=== PATIENT | male | born 1955 | race Caucasian/White ===

== ENCOUNTER → 2017-04-07 | Outpatient (CLI) | payer OTHER ==
--- NOTE | 2017-04-08 07:45 | MR ---
EXAMINATION TYPE: MR shoulder RT wo con DATE OF EXAM: 04/07/2017 5:02 PM COMPARISON: NONE HISTORY: Rt shoulder pain x 3 mos TECHNIQUE: Multiplanar, multisequence imaging of the right shoulder is performed without contrast. FINDINGS: There is no evidence of an os acromiale. There are mild hypertrophic and inflammatory changes involving the right AC joint. There is abnormal fluid signal within the infraspinatus tendon. This measures 1.5 x 2 cm. There is te ndinosis of the remainder of the infraspinatus tendon. The supraspinatus tendon is a more normal appe arance. There is gross swelling of the biceps tendon in its distal visualized portion. The attending cannot b e followed beyond the biceps anchor. The intra-articular portion is not visualized. I suspect this is ruptured and retracted to the biceps tendon sheath. The pseudocystic change in the humeral head, an indirect sign of impingement. The superior glenoid labrum appears macerated. There is pseudocystic change in the superior aspect of the glenoid. There is near complete loss of the glenohumeral joint space. IMPRESSION: INTRASUBSTANCE TEAR OF THE INFRASPINATUS TENDON. 2. RUPTURE OF THE BICEPS TENDON WITH RETRACTION INTO THE BICEPS TENDON SHEATH. 3. MACERATION OF THE SUPERIOR GLENOID LABRUM. 4. HYPERTROPHIC INFLAMMATORY CHANGE, RIGHT AC JOINT. 5. PSEUDOCYSTIC CHANGE WITHIN THE HUMERAL HEAD, AN INDIRECT SIGN OF IMPINGEMENT.
== END | disposition home or self-care (01) ==
LOC: RADMRIMAIN 16:20
PROVIDERS: ATTEND Orthopaedic Surgery
DX: S46.811A Strain of other muscles, fascia and tendons at shoulder and upper arm level, right arm, initial encounter (principal); S43.431A Superior glenoid labrum lesion of right shoulder, initial encounter; M66.811 Spontaneous rupture of other tendons, right shoulder

== ENCOUNTER → 2017-07-07 | Outpatient (CLI) | payer OTHER ==
[2017-07-07 14:18] LABS: EKG EKG PERFORMED
[2017-07-07 14:47] LABS: Anion Gap 13 mmol/L; Carbon Dioxide 21 mmol/L (22-30); Chloride 103 mmol/L (98-107); Potassium 4.9 mmol/L (3.5-5.1); Sodium 137 mmol/L (137-145)
[2017-07-07 15:32] LABS: Basophils # (A) 0.1 k/uL (0-0.2); Basophils % (A) 1 %; CH 32.3; CHCM 35.1; Eosinophils # (A) 0.2 k/uL (0-0.7); Eosinophils % (A) 3 %; HCT 39.4 % (39.0-53.0); Luc # (Auto) 0.08; Luc % (Auto) 1; Lymphocytes # (A) 1.5 k/uL (1.0-4.8); Lymphocytes % (A) 25 %; MCH 30.5 pg (25.0-35.0); MCHC 33.1 g/dL (31.0-37.0); MCV 92.3 fL (80.0-100.0); Mean Platelet Volume 6.1; Monocytes # (A) 0.3 k/uL (0-1.0); Monocytes % (A) 5 %; Neutrophils # (A) 3.9 k/uL (1.3-7.7); Neutrophils % (A) 64 %; RBC 4.27 m/uL (4.30-5.90); RDW 12.4 % (11.5-15.5); WBC 6.1 k/uL (3.8-10.6); WBC (Perox) 6.24
== END | disposition home or self-care (01) ==
LOC: LABWHC1 14:01
PROVIDERS: ATTEND Orthopaedic Surgery
DX: Z01.812 Encounter for preprocedural laboratory examination (principal)
CPT/HCPCS: 36415; 80051; 85025; 93005

== ENCOUNTER 2017-07-30 05:54 | Day surgery (SDC) | payer OTHER ==
[2017-07-27 16:29] VITALS: BMI 25.7
--- NOTE | 2017-07-29 15:03 | HP ---
HISTORY AND PHYSICAL REASON FOR ADMISSION: Surgery 07/30/2017 HISTORY OF PRESENT ILLNESS: Carmela Rios is a 52-year-old patient seen with progressive right shoulder pain. After we had discussed treatment options, he elected to proceed with right shoulder arthroscopy. Consent was obtained. PAST MEDICAL HISTORY: Hypertension. PAST SURGICAL HISTORY: Left shoulder arthroscopy. DAILY MEDICATIONS: Ibuprofen. ALLERGIES: PENICILLIN. SOCIAL HISTORY: Patient denies current tobacco use. PHYSICAL EXAMINATION: Evaluation right shoulder flexion 80 degrees, abduction is 40 degrees, external rotation is 40 degrees with pain and weakness. Tenderness anterior lateral acromion rotator cuff insertion site. Impingement positive 90 degrees. Drop-arm sign positive. Distal neurovascular exam is intact. RADIOGRAPHS: Right shoulder radiographs revealed a type 2 anterior acromion acromioclavicular joint osteoarthritis and cystic changes of the tuberosity. An MRI of right shoulder revealed rotator cuff tear, biceps tear and acromioclavicular joint osteoarthritis. IMPRESSION: Right shoulder impingement with rotator cuff tear and acromioclavicular joint osteoarthritis. PLAN: Right shoulder arthroscopy, subacromial decompression, probable arthroscopic rotator cuff repair, probable Filemon procedure and debridement. Surgery 07/30/2017. MMODL / IJN: [id number] /
[~2017-07-30 05:54] MED LIST: DEXAMETHASONE SOD PHOSPHATE 10 MG/ML 1 ML VIAL IV ONE; HYDROmorphone 0.5 MG/0.5 ML SYRINGE IVP PRN; MIDAZOLAM 2 MG/2 ML VIAL IV PRN; ONDANSETRON 4 MG/2 ML VIAL IVP ONE; Pre Op ABX Message 1 EACH MISC MISCELLANE ONE
[2017-07-30] MEDS: LACTATED RINGERS 1,000 ML IV SCH ×2 (06:38→09:11)
[2017-07-30] MEDS ORDERED: LIDOCAINE 1% 20 ML VIAL (10MG/ML) FOR IV START INTRADERMA ONE (06:45)
[2017-07-30] MEDS ORDERED: fentaNYL (PF) 50 MCG/ML 2 ML AMP IV ONE (07:08)
[2017-07-30] MEDS ORDERED: MIDAZOLAM 2 MG/2 ML VIAL ONE (07:29)
[2017-07-30] MEDS ORDERED: LIDOCAINE 1% INJ 10MG/ML (20 ML MDV) ONE (07:29)
[2017-07-30] MEDS ORDERED: SUCCINYLCHOLINE CHLORIDE 100 MG/5 ML SYR IV ONE (07:29)
[2017-07-30] MEDS ORDERED: ROPIVACAINE 5 MG/ML 30 ML VIAL ONE (07:29)
[2017-07-30] MEDS ORDERED: PROPOFOL 10 MG/ML 20 ML VIAL IV ONE (07:29)
[2017-07-30] MEDS ORDERED: ePHEDrine SULFATE/0.9% NACL/PF 50 MG/5 ML SYRINGE IV ONE (07:29)
[2017-07-30] MEDS ORDERED: fentaNYL (PF) 50 MCG/ML 2 ML AMP ONE (07:29)
[2017-07-30] MEDS ORDERED: LIDOCAINE 2%-EPI 1:100,000 20 ML VIAL ONE (07:29)
[2017-07-30] MEDS ORDERED: SODIUM CHLORIDE 0.9% 100 ML with CLINDAMYCIN 600 MG IV ONE ×2 (07:45)
--- NOTE | 2017-07-30 08:53 | P.ONQ ---
Anesthesiology Proc Note - PNB - Peripheral Nerve Block Performed Right Interscalene Single Time Out Performed: Yes Procedure Start Time: 07:10 Indication: Acute Post-Operative Pain, Analgesia Specifically requested for management of pain by DrMoreno: Tobi Carbajal Sedation Type: Sedate with meaningful contact maintained Preparation: Sterile Prep Position: Supine Catheter: None Needle Types: Other (see comment) (Pajunk) Needle Size: 50mm (2") Needle Gauge: 21 Technique: Ultrasound Injectate: Other (see comment) (12.5cc 0.5% ropiv + 12.5cc 2% lido) Adjunct: Epinephrine (see comment for dilution ratio) (1:200,000) Blood Aspirated: No Pain Paresthesia on Injection Noted: No Resistance on Injection: Normal Events: Uneventful and Well Tolerated
--- NOTE | 2017-07-30 09:35 | P.OP ---
Date of Procedure: 07/30/17 Preoperative Diagnosis: Right shoulder impingement Postoperative Diagnosis: 1. Right shoulder rotator cuff tear 2. Right shoulder impingement 3. Right shoulder acromioclavicular joint osteoarthritis 4. Right shoulder superficial labral tear 5. 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 Right shoulder arthroscopic rotator cuff repair 2. Right shoulder arthroscopic subacromial decompression 3. Right shoulder arthroscopic Filemon procedure 4. Right shoulder arthroscopic debridement labral tear 5. Right shoulder arthroscopic chondroplasty glenoid Implants: 4-peek anchors Anesthesia: GETA, regional (Interscalene block) Surgeon: Tobi Carbajal Manager Sales #1: Darin Cortes Estimated Blood Loss (ml): 10 Pathology: none sent Condition: stable Disposition: PACU Indications for Procedure: 62-year-old patient seen with progressive right shoulder pain. After treatment options were discussed, he elected to proceed with arthroscopy. Operative Findings: See description of procedure Description of Procedure: Patient underwent a shoulder block by department of anesthesia. The patient was then taken to the operative suite. The patient underwent a general anesthetic by the department of anesthesia. The patient was placed into a lateral position and secured. There was appropriate padding of the bony prominence. Right shoulder was then prepped and draped in normal sterile orthopedic fashion. We placed the extremity in 10 pounds of longitudinal traction. A posterior incision was now made for a posterior working portal site. The trocar and cannula were inserted into the glenohumeral joint. Arthroscopy was initiated. Spinal needle was now inserted anteriorly, to ascertain the anterior working portal site. An incision was now made in that area, a trocar was inserted followed by a probe. Superficial tearing of the superior and anterior labrum was present. The long head biceps tendon was absent. There were grade 2 and 3 chondromalacia changes of the anterior portion of the glenoid with some osteochondral tears present. There were grade 1 chondral changes of the humeral head but no osteochondral tears were present. The posterior and inferior labrum were intact. There were no loose bodies. I could visualize a complete rotator cuff tear from the glenohumeral side. I debrided the labral tears getting down to stable tissue. I performed a chondroplasty of the glenoid down to stable tissue. The residual labrum was found to be stable as was the residual osteochondral surface of the glenoid. Instruments were now removed from glenohumeral joint. Utilizing the posterior working portal site, the trocar and cannula were inserted into the subacromial space. Arthroscopy initiated. I made an incision 2 fingerbreadths lateral to the acromion. I introduced my trocar followed by my ArthroCare ablator. I now began ablating thick subacromial bursal tissue, which exposed the undersurface of the anterior acromion. This was diminished subacromial space. There was a very prominent anterior acromion. A motorized bur was introduced and a subacromial decompression was performed. I also excised some osteophytes off the inferior aspect of the distal clavicle. The AC joint was visualized and noted to be fairly arthritic. Our motorized bur was introduced in the anterior portal site and a Filemon procedure was performed without difficulty, decompressing the AC joint nicely. I turned my attention to the rotator cuff. There was a 2 cm distal supraspinatus rotator cuff tendon tear. I debrided the margins gained down to stable tissue. Once I completed debriding the margins getting down to stable tissue the tear was approximately 2.5 cm. I abraded the footprint with a motorized bur. I created an sandblast carver portal site off the lateral acromion. I introduced 2 medial row anchors with 2 sutures each. I passed all 8 limbs of suture through good bites of rotator cuff tendon. I crisscrossed the sutures and then introduced 2 lateral anchors compressing the tendon along the footprint very nicely. The residual suture limbs were clipped. The repair was probed and found to be stable. Instruments now removed from the portal sites. All portal sites were approximated with nylon suture. Sterile dressings were applied followed by a shoulder immobilizer. Jitendra MAGANA assisted with the procedure. The patient was awakened, transferred to a bed, and taken to recovery in stable condition.
[2017-07-30 09:39] VITALS: TEMP 96.9
[2017-07-30 10:09] VITALS: PULSE 88
[2017-07-30 10:34] VITALS: RESP 16
[2017-07-30 10:39] VITALS: BP 153/85
== END 2017-07-30 11:35 | disposition home or self-care (01) ==
LOC: OR 05:54
PROVIDERS: ATTEND Orthopaedic Surgery
DX: M75.101 Unspecified rotator cuff tear or rupture of right shoulder, not specified as traumatic (principal); M25.811 Other specified joint disorders, right shoulder; M19.011 Primary osteoarthritis, right shoulder; S43.401A Unspecified sprain of right shoulder joint, initial encounter; X58.XXXA Exposure to other specified factors, initial encounter; M25.711 Osteophyte, right shoulder; M94.211 Chondromalacia, right shoulder; Z87.891 Personal history of nicotine dependence; I10 Essential (primary) hypertension; Z79.1 Long term (current) use of non-steroidal anti-inflammatories (NSAID); Z79.899 Other long term (current) drug therapy; Z88.0 Allergy status to penicillin
CPT/HCPCS: 64415; 29826; 29827; 29824; C1713 ×2; J2250; J1100; J2405; J2001; J3010; J2795; J0330; J2704

== ENCOUNTER 2020-05-31 09:31 | Emergency (ER) | payer MEDICARE, OTHER ==
[2020-05-31 09:37] VITALS: PULSE 77; RESP 18; TEMP 97.9
--- NOTE | 2020-05-31 09:57 | XR ---
EXAMINATION TYPE: XR knee complete LT DATE OF EXAM: 05/31/2020 CLINICAL HISTORY: pain TECHNIQUE: Three views of the left knee are obtained. COMPARISON: None. FINDINGS: There is no acute fracture/dislocation. The tri-compartment joint spaces appear within no rmal limits. The overlying soft tissue appears unremarkable. IMPRESSION: There is no acute fracture or dislocation ICD 10 NO FRACTURE, INITIAL EVALUATION
[2020-05-31] MEDS ORDERED: ACET/COD 300 MG/30 MG STARTER PACK 6 TAB BTL PO STA (10:10)
--- NOTE | 2020-05-31 10:26 | ED ---
Lower Extremity Injury HPI - General Chief Complaint: Extremity Injury, Lower Stated Complaint: left knee injury Time Seen by Provider: 05/31/20 09:37 Source: patient Mode of arrival: ambulatory Limitations: no limitations - History of Present Illness Initial Comments: 64yo male presenting to the Er today for cc of left posterior knee pain. Patient states that he has had left posterior knee pain that began roughly 5 days ago over the weekend after doing mulch. He states he was placing mulch and was off and on his knees multiple times. Patient denies falls. Denies leg swelling, knee swelling, redness, fevers, chills. Denies chest pain or SOB. States he is able to move the knees but weight bearing has causes more pain throughout the week. patient has been working continuing to do yard work. Patient has no additional complaints or concerns. - Related Data Home Medications Medication Instructions Recorded Confirmed Lisinopril-Hctz 20-12.5 mg 1 tab PO BID 05/31/20 05/31/20 [Zestoretic 20-12.5] Simvastatin [Zocor] 40 mg PO HS 05/31/20 05/31/20 Allergies Allergy/AdvReac Type Severity Reaction Status Date / Time Penicillins Allergy Swelling Verified 05/31/20 10:36 Review of Systems ROS Statement: Those systems with pertinent positive or pertinent negative responses have been documented in the HPI. ROS Other: All systems not noted in ROS Statement are negative. Past Medical History Past Medical History: Hyperlipidemia, Hypertension Additional Past Medical History / Comment(s): recent elevated BP at PCP office History of Any Multi-Drug Resistant Organisms: None Reported Past Surgical History: Orthopedic Surgery, Tonsillectomy Additional Past Surgical History / Comment(s): B shoulder Past Anesthesia/Blood Transfusion Reactions: No Reported Reaction Past Psychological History: No Psychological Hx Reported Smoking Status: Former smoker Past Alcohol Use History: Daily Past Drug Use History: None Reported General Exam - General Exam Comments Initial Comments: General: The patient is awake and alert, in no distress Eye: +3 mm pupils are equal, round and reactive to light, extra-ocular movements are intact. No nystagmus. There is normal conjunctiva bilaterally. No signs of icterus. Ears, nose, mouth and throat: There are moist mucous membranes and no oral lesions. Neck: The neck is supple, there is no tenderness or JVD. Cardiovascular: There is a regular rate and rhythm. No murmur, rub or gallop is appreciated. Respiratory: Lungs are clear to auscultation, respirations are non-labored, breath sounds are equal. No wheezes, stridor, rales, or rhonchi. Gastrointestinal: Soft, non-distended, non-tender abdomen without masses or organomegaly noted. There is no rebound or guarding present. No CVA tenderness. Musculoskeletal: Normal inspection of the knees b/l, tenderness to palpation of the left posterior knee. Full ROM without difficulty of the knees b/l. Stregnth preserved 5/5. Sensation intact proximal and distal to injury site. DP pulses equal bilaterally 2+. Pain with weight bearing. Neurological: A&O x 3. CN II-XII intact grossly, There are no obvious motor or sensory deficits. Coordination appears grossly intact. Speech is normal. Skin: Skin is warm and dry and no rashes or lesions are noted. Psychiatric: Cooperative, appropriate mood & affect, normal judgment. Limitations: no limitations Course Vital Signs 05/31/20 05/31/20 09:34 11:17 Temperature 97.9 F Pulse Rate 77 Respiratory 18 Rate Blood Pressure 176/98 182/108 O2 Sat by Pulse 97 98 Oximetry Medical Decision Making - Medical Decision Making XR (-). US (-). No DVT. Patient neurovascularly intact. Patient does not have r edness, swelling or difficulty ranging at the knee at this time I have low suspicion for septic joint. Recommend close f/u. Patient has appointment thursday with orthopedic surgery, [facility]. He is to rest the knee, ice, elevate and he can use the knee immobilizer when ambulating. Discussedd case with Dr. Donis who is agreeable to care plan. Disposition Clinical Impression: Left knee pain Disposition: HOME SELF-CARE Condition: Good Instructions (If sedation given, give patient instructions): Knee Sprain (ED), Knee Pain (ED) Additional Instructions: Please use medication as discussed. Please follow-up with family doctor in the next 2 days.. Please return to emergency room if the symptoms increase or worsen or for any other concerns. Is patient prescribed a controlled substance at d/c from ED?: No Referrals: Izabella Godwin DO [Primary Care Provider] - 1-2 days Time of Disposition: 10:44
[2020-05-31] MEDS ORDERED: ACETAMINOPHEN TAB 325 MG TAB PO STA (10:35)
--- NOTE | 2020-05-31 10:42 | US ---
EXAMINATION TYPE: US venous doppler duplex LE LT DATE OF EXAM: 05/31/2020 10:26 AM COMPARISON: NONE CLINICAL HISTORY: posterior left knee pain. no swelling, no h/o dvt, pain behind knee with no injury SIDE PERFORMED: left TECHNIQUE: The lower extremity deep venous system is examined utilizing real time linear array sonog candida with graded compression, doppler sonography and color-flow sonography. VESSELS IMAGED: External Iliac Vein (EIV) Common Femoral Vein Deep Femoral Vein Greater Saphenous Vein * Femoral Vein Popliteal Vein Small Saphenous Vein * Proximal Calf Veins (* superficial vessels) Left Leg: Negative for DVT IMPRESSION: No evidence for DVT
[2020-05-31 11:19] VITALS: BP 182/108
== END 2020-05-31 11:19 | disposition home or self-care (01) ==
LOC: EC 09:31
DX: M25.562 Pain in left knee (principal); E78.5 Hyperlipidemia, unspecified; I10 Essential (primary) hypertension; Z79.899 Other long term (current) drug therapy; Z87.891 Personal history of nicotine dependence; Z88.0 Allergy status to penicillin
CPT/HCPCS: 99284

== ENCOUNTER → 2020-07-05 | Outpatient (CLI) | payer MEDICARE, OTHER ==
--- NOTE | 2020-07-05 15:36 | MR ---
EXAMINATION TYPE: MR knee LT wo con DATE OF EXAM: 07/05/2020 COMPARISON: Left knee x-rays June 06, 2020 HISTORY: Left knee pain x 1 month TECHNIQUE: Multiplanar, multisequence imaging of the left knee is performed without IV contrast. FINDINGS: MEDIAL MENISCUS: Posterior horn shows globular increased signal does not definitively extend to artic ular surface. Anterior horn is intact. LATERAL MENISCUS: Anterior and posterior horns are intact without tear. CRUCIATE LIGAMENTS: The anterior and posterior cruciate ligaments are intact. There is suggestion of some partial tearing in the anterior cruciate ligament sagittal image 16. COLLATERAL LIGAMENTS: The medial collateral ligament and lateral collateral ligament complex are inta ct. Mild fluid signal surrounds medial collateral ligament. EXTENSOR MECHANISM: Visualized quadriceps and patellar tendons are intact. EFFUSION: Small suprapatellar joint effusion. POPLITEAL CYST: No popliteal/laguerre cyst. TRICOMPARTMENT SPACES: Mild tricompartment joint space loss and spurring. CARTILAGE: Thinning of articular cartilage medial tibiofemoral compartment BONE MARROW SIGNAL: Focus of increased T2 signal medial aspect medial tibial plateau with subtle area of low T1 signal extending to articular surface sagittal image 26 measuring 4 mm. There is subchondr al cystic change in the posterior lateral tibial metaphysis. OTHER: No additional significant abnormality is appreciated. IMPRESSION: 1. Intrasubstance tear posterior horn medial meniscus. No full-thickness meniscal tear. 2. Mild MCL sprain injury. 3. Oblique partial tearing of the ACL without full-thickness tear 4. Mild to moderate tricompartment degenerative changes greatest medial tibial femoral compartment as detailed above. Tiny subchondral injury and edema medial aspect medial tibial plateau. 5. Small suprapatellar joint effusion.
== END | disposition home or self-care (01) ==
LOC: RADMRIMAIN 14:44
PROVIDERS: ATTEND Orthopaedic Surgery
DX: M17.12 Unilateral primary osteoarthritis, left knee (principal); S83.242A Other tear of medial meniscus, current injury, left knee, initial encounter; S83.512A Sprain of anterior cruciate ligament of left knee, initial encounter; S83.412A Sprain of medial collateral ligament of left knee, initial encounter; S89.82XA Other specified injuries of left lower leg, initial encounter; R60.0 Localized edema

== ENCOUNTER → 2020-07-31 | Outpatient (CLI) | payer MEDICARE, OTHER ==
[2020-07-31 08:49] LABS: Potassium 5.4 mmol/L (3.5-5.1)
[2020-07-31 09:37] LABS: Basophils # (A) 0.1 k/uL (0-0.2); Basophils % (A) 1 %; Eosinophils # (A) 0.1 k/uL (0-0.7); Eosinophils % (A) 2 %; HCT 38.2 % (39.0-53.0); HGB 12.6 gm/dL (13.0-17.5); Lymphocytes # (A) 1.4 k/uL (1.0-4.8); Lymphocytes % (A) 20 %; MCH 30.6 pg (25.0-35.0); MCHC 32.9 g/dL (31.0-37.0); Mean Platelet Volume 6.9; Monocytes # (A) 0.4 k/uL (0-1.0); Monocytes % (A) 6 %; Neutrophils # (A) 5.1 k/uL (1.3-7.7); Neutrophils % (A) 70 %; Platelet Count 232 k/uL (150-450); RBC 4.11 m/uL (4.30-5.90); RDW 13.5 % (11.5-15.5); WBC 7.3 k/uL (3.8-10.6)
== END | disposition home or self-care (01) ==
LOC: LABPAT 07:40
PROVIDERS: ATTEND Orthopaedic Surgery
DX: M23.92 Unspecified internal derangement of left knee (principal)
CPT/HCPCS: 36415; 80051; 85025; 93005

== ENCOUNTER 2020-08-08 10:01 | Day surgery (SDC) | payer MEDICARE, OTHER ==
[2020-08-06 09:38] VITALS: BMI 25.1
--- NOTE | 2020-08-07 17:17 | HP ---
HISTORY AND PHYSICAL DATE OF SURGERY: 08/08/2020 Carmela Rios is a 65-year-old gentleman seen with progressive left knee pain. We discussed options, he elected to proceed with left knee arthroscopy. Consent was obtained. PAST MEDICAL HISTORY: Hypertension. PAST SURGICAL HISTORY: Noncontributory. . DAILY MEDICATIONS: Losartan, simvastatin, aspirin. ALLERGIES: PENICILLIN. SOCIAL HISTORY: Denies current tobacco use. PHYSICAL EVALUATION OF THE LEFT KNEE: His range of motion is 0-130, he has a mild effusion. Tenderness medial joint line. Positive medial Justin's. Ligaments stable. Hip rotation without pain. Distal neurovascular exam intact. LEFT KNEE RADIOGRAPHS: Revealed mild osteoarthritis, left knee MRI revealed an intrasubstance medial meniscal tear, partial ACL tear, joint effusion and osteoarthritis. IMPRESSION: 1. Internal derangement, left knee with medial meniscal tear and partial ACL tear. 2. Left knee osteoarthritis. 3. Hypertension. PLAN: Left knee arthroscopy with partial meniscectomy, debridement, partial ACL tear, partial synovectomy. MMODL / IJN: [id number] /
[~2020-08-08 10:01] MED LIST changes: -DEXAMETHASONE SOD PHOSPHATE 10 MG/ML 1 ML VIAL IV ONE; +LACTATED RINGERS 1,000 ML IV SCH; -ONDANSETRON 4 MG/2 ML VIAL IVP ONE; +ONDANSETRON 4 MG/2 ML VIAL IVP PRN; -Pre Op ABX Message 1 EACH MISC MISCELLANE ONE; +fentaNYL (PF) 50 MCG/ML 2 ML AMP IV PRN
[2020-08-08 10:27] VITALS: RESP 16
[2020-08-08] MEDS ORDERED: ONDANSETRON 4 MG/2 ML VIAL ONE (10:36)
[2020-08-08] MEDS ORDERED: ONDANSETRON 4 MG/2 ML VIAL IVP ONE (10:48)
[2020-08-08] MEDS ORDERED: LIDOCAINE 1% (10MG/ML) FOR IV START INTRADERMA ONE (10:48)
[2020-08-08] MEDS ORDERED: DEXAMETHASONE SOD PHOSPHATE 4 MG/ML 1 ML VIAL IV ONE (10:48)
[2020-08-08] MEDS ORDERED: MIDAZOLAM 2 MG/2 ML VIAL IV ONE (11:08)
[2020-08-08] MEDS ORDERED: fentaNYL (PF) 50 MCG/ML 2 ML AMP ONE (11:43)
[2020-08-08] MEDS ORDERED: BUPIVACAINE (PF) 0.25% 30 ML VIAL SQ ONE ×3 (11:43→12:17)
[2020-08-08] MEDS ORDERED: MIDAZOLAM 2 MG/2 ML VIAL ONE (11:43)
[2020-08-08] MEDS ORDERED: PROPOFOL 10 MG/ML 20 ML VIAL IV ONE (11:43)
[2020-08-08] MEDS ORDERED: LIDOCAINE 1% INJ 10MG/ML (20 ML MDV) ONE (11:43)
[2020-08-08] MEDS ORDERED: ePHEDrine SULFATE/0.9% NACL/PF 50 MG/5 ML SYRINGE IV ONE (11:43)
--- NOTE | 2020-08-08 12:35 | P.OP ---
Date of Procedure: 08/08/20 Preoperative Diagnosis: Internal derangement left knee Postoperative Diagnosis: 1. Tear medial meniscus left knee 2. Grade 2 chondromalacia medial femoral condyle left knee 3. Grade 2/3 chondromalacia femoral sulcus left knee 4. Reactive synovitis medial, lateral and suprapatellar compartments left knee Procedure(s) Performed: 1. Arthroscopic partial medial meniscectomy left knee 2. Arthroscopic chondroplasty medial femoral condyle left knee 3. Arthroscopic chondroplasty femoral sulcus left knee 4. Arthroscopic partial synovectomy medial, lateral and suprapatellar compartments left knee Anesthesia: SHASHAA, local Surgeon: Tobi Carbajal Estimated Blood Loss (ml): 9 Pathology: none sent Condition: stable Disposition: PACU Indications for Procedure: 65-year-old patient seen with progressive left knee pain. After having treatment options discussed, he elected to proceed with arthroscopy. Operative Findings: See description of procedure Description of Procedure: Patient was taken to the operative suite. Patient underwent a general anesthetic by the department of anesthesia. Patient was given preoperative antibiotics. The left lower extremity was placed in a well-padded arthroscopic leg katz. The left leg was prepped and draped in the normal sterile orthopedic fashion. A lateral parapatellar and suprapatellar incision was made. Trochars were inserted. Arthroscopy was initiated. Suprapatellar pouch revealed diffuse thick reactive synovitis. The patellofemoral joint appeared articulate congruently. There was grade 2/3 chondromalacia of the femoral sulcus with some osteochondral flap tears present.. The scope was guided into the medial gutter. No loose bodies or plica were identified. The scope was then guided into the medial compartment. A medial parapatellar incision was made. Trocar inserted followed by probe. There was a complex tear posterior horn medial meniscus. There were grade 2 chondromalacia changes of the medial femoral condyle with some osteochondral flap tears present. There was thick reactive synovitis anteriorly. I performed a partial medial meniscectomy getting down to stable meniscal tissue. I performed a chondroplasty of the medial femoral condyle getting down to stable osteochondral tissue. I performed a partial synovectomy decompressing the reactive synovitis anteriorly. The residual meniscus was stable. There was good decompression of the synovitis. Scope and probe were then guided into the intercondylar notch. Cruciates were identified, probed and found to be stable. The scope and probe were then guided into lateral compartment. The lateral meniscus was found to be stable. There were some grade 1/2 chondromalacia changes lateral compartment involving the lateral femoral condyle with no osteochondral tears present. There was thick reactive synovitis anteriorly. I introduced a motorized shaver and performed a partial synovectomy. There was good decompression of synovitis. The scope was in guided back into the suprapatellar compartment. I introduced a motorized shaver into the suprapatellar compartment. I debrided some piecemeal fragments of meniscus I encountered. I performed a chondroplasty of the femoral sulcus getting down to stable osteochondral tissue. I performed a partial synovectomy decompressing the reactive synovitis. The shaver was removed. The residual osteochondral surface of the femoral condyle was stable. There was good decompression of synovitis. I now took one more look on the entire knee, no residual debris. Instruments were now removed from the joint. The joint was infiltrated with .25% Marcaine. Steri-Strips were applied to the portal sites. Sterile dressings were applied. The patient was placed into a SHELBY hose. No tourniquet was utilized. The patient was awakened, transferred to a bed and taken to recovery stable satisfactory condition.
[2020-08-08 12:39] VITALS: TEMP 97.3
[2020-08-08 13:23] VITALS: PULSE 93
[2020-08-08 13:39] VITALS: BP 146/75
== END 2020-08-08 13:57 | disposition home or self-care (01) ==
LOC: OR 10:01
PROVIDERS: ATTEND Orthopaedic Surgery
DX: M23.222 Derangement of posterior horn of medial meniscus due to old tear or injury, left knee (principal); M94.262 Chondromalacia, left knee; M65.862 Other synovitis and tenosynovitis, left lower leg; M17.12 Unilateral primary osteoarthritis, left knee; I10 Essential (primary) hypertension; E78.5 Hyperlipidemia, unspecified; Z79.899 Other long term (current) drug therapy; Z79.82 Long term (current) use of aspirin; Z88.0 Allergy status to penicillin; Z98.890 Other specified postprocedural states
CPT/HCPCS: 29881; J2250; J1100; J0690; J2405; J2001; J3010; J2704; J1170